=== PATIENT | male | born 1995 ===

== ENCOUNTER 2024-03-02 03:52 | Emergency (ER) | payer OTHER ==
--- NOTE | 2024-03-02 04:02 | ED Physician Documentation ---
PD HPI LOWER EXT INJURY - Stated complaint Stated Complaint: L ANKLE INJ - Chief complaint Chief Complaint: Trauma Ext - History obtained from History obtained from: Patient - Additional information Additional information: HPI from patient. Patient complains of sudden onset left ankle pain and swelling over lateral aspect. This occurred due to a twisting injury sustained while playing basketball approximately 90 minutes prior to arrival. Denies any other injury. Pain is exacerbated with movement, weightbearing, palpation. Review of Systems Musculoskeletal: reports: Joint pain, Joint swelling, Pain with weight bearing Neurologic: denies: Focal weakness, Numbness PD PAST MEDICAL HISTORY - Past Medical History Past Medical History: No - Past Surgical History Past Surgical History: No - Allergies Allergies/Adverse Reactions: Allergies Allergy/AdvReac Type Severity Reaction Status Date / Time No Known Drug Allergies Allergy Verified 03/02/24 03:56 - Social History Does the pt smoke?: No Smoking Status: Never smoker Does the pt drink ETOH?: No Does the pt have substance abuse?: No - Immunizations Immunizations are current?: Yes - POLST Patient has POLST: No PD ED PE NORMAL - Vitals Vital signs reviewed: Yes - General General: Alert and oriented X 3, No acute distress, Well developed/nourished - Derm Derm: Normal color PD ED PE EXPANDED - Extremities Feet visual: 1 - swelling, tenderness Results - Vitals Vitals: Vital Signs - 24 hr 03/02/24 03:57 Temperature 36.1 C L Heart Rate 112 H Respiratory 18 Rate Blood Pressure 137/89 H O2 Saturation 100 Oxygen O2 Source Room air - Rads (name of study) left ankle xrays Relevant Findings:: Prelim report reviewed, See rad report PD Medical Decision Making - ED course Complexity details: reviewed results, re-evaluated patient, considered differential, d/w patient ED course: No abnormalities on plain-film x-rays of the left ankle except for soft tissue swelling which is evident on the physical exam. Suspect diagnosis of sprained ankle at this point, for which he is provided crutches and an Aircast splint is placed. Results reviewed with patient, prognosis is discussed. Advised to follow-up with primary care provider within 3 to 5 days for reevaluation. He is given 600 mg ibuprofen p.o. prior to discharge. Departure - Departure Disposition: 01 Home, Self Care Clinical Impression: Ankle sprain Qualifiers: Encounter type: initial encounter Involved ligament of ankle: unspecified ligament Laterality: left Qualified Code(s): S93.402A - Sprain of unspecified ligament of left ankle, initial encounter Condition: Good Instructions: ED Sprain Ankle W X Ray, ED Crutch Walking Follow-Up: TISH Coreas [Provider Group] Comments: Minimize weight-bearing using the crutches, and keep the splint in place during the day. You should do this for at least the next 1 week (splint, crutches). Contact your primary care provider when their office opens later this morning to arrange for a follow-up/reevaluation appointment. Ideally, following up for reevaluation with your primary care provider should take place within the next 3 to 5 days. Forms: Activity restrictions Discharge Date/Time: 03/02/24 04:53
[2024-03-02 04:05] VITALS: BP 137/89; O2SAT 100
[2024-03-02] MEDS: IBUPROFEN 600 MG TABLET PO STA (04:40)
--- NOTE | 2024-03-02 07:38 | XRAY Report ---
PROCEDURE: Ankle 3+V LT INDICATIONS: fall TECHNIQUE: 3 views of the ankle were acquired. COMPARISON: None. FINDINGS: Bones: No acute fractures or dislocations. Ankle mortise is normally aligned. No suspicious bony l esions. Soft tissues: Nonspecific soft tissue edema surrounding the ankle. Suspected small tibiotalar effusio n. IMPRESSION: Nonspecific soft tissue edema. No acute osseous abnormality. If there is clinical concern or persiste nt symptoms, additional imaging such as repeat radiographs or advanced imaging (e.g. CT, MRI) may be helpful for further evaluation. There is no significant discrepancy when compared with the preliminary overnight report. Reviewed by: Rl Khan MD on 03/02/2024 7:37 AM PDT Approved by: Rl Khan MD on 03/02/2024 7:37 AM PDT Station ID: [id number]
== END 2024-03-02 04:53 | disposition home or self-care (01) ==
LOC: ED 03:52
DX: S93.402A Sprain of unspecified ligament of left ankle, initial encounter (principal); X50.1XXA Overexertion from prolonged static or awkward postures, initial encounter; Y93.67 Activity, basketball
CPT/HCPCS: 73610; 99283; A9270